=== PATIENT | female | born 1985 | race African-American/Black ===

== ENCOUNTER 2019-10-08 17:11 | Emergency (ER) | payer OTHER, SELFPAY ==
[2019-10-08] MEDS ORDERED: Mag-Al 1200 mg/1200 mg/30 ML UDCUP ONE (17:49)
[2019-10-08] MEDS ORDERED: Lidocaine Viscous Sol 2% 15 ml UD Cup ONE (17:49)
[2019-10-08] MEDS ORDERED: Cyclobenzaprine 10 MG TAB ONE (17:49)
== END 2019-10-08 18:38 | disposition home or self-care (01) ==
LOC: ERS 17:11
DX: K29.70 Gastritis, unspecified, without bleeding (principal); M54.5 Low back pain; I10 Essential (primary) hypertension; F32.9 Major depressive disorder, single episode, unspecified; Z79.899 Other long term (current) drug therapy
CPT/HCPCS: 99283

== ENCOUNTER 2022-11-21 08:53 | Emergency (ER) | payer OTHER ==
[2022-11-21] MEDS ORDERED: Boostrix 0.5 ML (Tdap) VIAL (>/=7 yrs of age) IM ONE (11:45)
[2022-11-21] MEDS ORDERED: Rabies Immune Globulin 1500 UNITS/10 ML VIAL IM SCH (11:45)
[2022-11-21] MEDS ORDERED: Rabies Vaccine Human 2.5 UNITS VIAL IM ONE (11:45)
[2022-11-21] MEDS ORDERED: Boostrix 0.5 ML (Tdap) VIAL (>/=7 yrs of age) ONE ×2 (12:17→13:54)
[2022-11-21] MEDS ORDERED: Rabies Vaccine Human 2.5 UNITS VIAL ONE ×2 (12:17→13:54)
== END 2022-11-21 14:07 | disposition home or self-care (01) ==
LOC: ERS 08:53
DX: S81.851A Open bite, right lower leg, initial encounter (principal); I10 Essential (primary) hypertension; W54.0XXA Bitten by dog, initial encounter; Z23 Encounter for immunization
CPT/HCPCS: 90375; 90376; 90471; 90472; 90675; 90715; 96372

== ENCOUNTER → 2022-11-24 | Emergency (ER) | payer OTHER ==
[~2022-11-24] MED LIST: Rabies Vaccine Human 2.5 UNITS VIAL ONE
== END ==
LOC: ER/OP 14:04
DX: Z53.29 Procedure and treatment not carried out because of patient's decision for other reasons (principal)
CPT/HCPCS: 90471; 90675

== ENCOUNTER → 2022-11-28 | Day surgery (SDC) | payer OTHER | END | disposition home or self-care (01) | LOC: ER/OP 08:35 | PROVIDERS: ATTEND Emergency Medicine | DX: Z23 Encounter for immunization (principal); I10 Essential (primary) hypertension; F17.210 Nicotine dependence, cigarettes, uncomplicated; Z88.6 Allergy status to analgesic agent | CPT/HCPCS: 90675 ==

== ENCOUNTER → 2022-12-05 | Day surgery (SDC) | payer OTHER | END | disposition home or self-care (01) | LOC: ER/OP 08:43 | PROVIDERS: ATTEND Emergency Medicine | DX: Z23 Encounter for immunization (principal) | CPT/HCPCS: 90471; 90675 ==

== ENCOUNTER → 2022-12-12 | Day surgery (SDC) | payer OTHER | END | disposition home or self-care (01) | LOC: ERS 11:21 | DX: Z23 Encounter for immunization (principal) | CPT/HCPCS: 90471; 90675 ==